=== PATIENT | male | born 1945 | race Hispanic/Latino ===

== ENCOUNTER → 2020-02-18 | Outpatient (CLI) | payer OTHER ==
[~2020-02-18] MED LIST: REGADENOSON 0.4 MG/5 ML PF SYG IVP SCH
== END | disposition home or self-care (01) ==
LOC: SHCH 09:00
PROVIDERS: ATTEND Internal Medicine
DX: Z01.810 Encounter for preprocedural cardiovascular examination (principal); I45.10 Unspecified right bundle-branch block
CPT/HCPCS: 78452; 93017; 96374; A9500 ×2; J2785

== ENCOUNTER 2020-03-02 07:35 | Day surgery (SDC) | payer OTHER ==
[2020-02-26 10:28] LABS: EOSINOPHILS % (AUTO) 6.6 % (0.0-8.0); HEMATOCRIT 38.9 % (42-54); MEAN CORPUSCULAR HEMOGLOBIN 26.8 pg (27.0-33.0); MEAN CORPUSCULAR HGB CONC 31.1 g/dL (32.0-36.0); MEAN CORPUSCULAR VOLUME 86.1 fL (79-99); MONOCYTES % (AUTO) 12.1 % (3.0-13.0); NEUTROPHILS % (AUTO) 46.1 % (40.0-77.0); PLATELET COUNT (AUTO) 233 K/uL (130-400); RED BLOOD CELL COUNT(AUTO) 4.52 MIL/uL (4.50-6.20); RED CELL DISTRIBUTION WIDTH 14.2 % (11.0-15.5)
[2020-02-27 08:49] VITALS: BP 181/88
[~2020-03-02] VITALS: Ht 177.8 cm; Wt 122.5 kg
[2020-03-02] VITALS (18 sets, daily range): BP systolic 144–168; BP diastolic 71–95
[~2020-03-02 07:35] MED LIST changes: +ATOR10 PO; +DULO30CA52 PO; +GABA600T10 PO; +GLIP10TA9 PO; +HYDR25TA PO; +LISI40TA4 PO; +OXYB5TAB15 PO; -REGADENOSON 0.4 MG/5 ML PF SYG IVP SCH
[2020-03-02] MEDS ORDERED: SODIUM CHLORIDE 0.9% 1000ML 1,000 ML IV ONE (08:32)
[2020-03-02] MEDS: CEFAZOLIN SODIUM 1 GM VIAL IVP SCH ×2 (09:00→12:00)
[2020-03-02] MEDS ORDERED: EPINEPHRINE 1 MG/ML 30ML VIAL IJ ONE (09:58)
[2020-03-02] MEDS ORDERED: CEFAZOLIN SODIUM 1 GM VIAL ONE (09:58)
[2020-03-02] MEDS ORDERED: LIDOCAINE PF 2% 5ML ABBOJECT ONE (11:32)
[2020-03-02] MEDS ORDERED: DEXAMETHASONE SOD PHOSPHATE 10MG/ML 1ML VIAL ONE (11:33)
[2020-03-02] MEDS ORDERED: MIDAZOLAM HCL 1 MG/ML 2ML VIAL ONE (11:33)
[2020-03-02] MEDS ORDERED: ONDANSETRON HCL 4 MG/2 ML VIAL ONE (11:33)
[2020-03-02] MEDS ORDERED: PROPOFOL 10 MG/ML 20ML VIAL IV ONE (11:33)
[2020-03-02] MEDS ORDERED: ROCURONIUM 10MG/1ML SYR 10 MG/ML ML ONE ×2 (11:34→12:35)
[2020-03-02] MEDS ORDERED: FENTANYL CITRATE PF 50 MCG/1 ML 2ML VIAL ONE (11:34)
[2020-03-02] MEDS ORDERED: EPHEDRINE SULFATE 50 MG/ML AMPULE ONE (12:16)
[2020-03-02] MEDS ORDERED: HYDR-4457 PO (14:40)
[2020-03-02] MEDS ORDERED: CEPH500B PO (14:40)
[2020-03-02] MEDS ORDERED: IBUP-2070 PO (14:40)
[2020-03-02] MEDS ORDERED: MEPERIDINE-PF 25 MG/ML SYG ONE ×2 (15:14→15:23)
== END 2020-03-02 17:15 | disposition home or self-care (01) ==
LOC: DAH 07:35
PROVIDERS: ATTEND Orthopaedic Surgery
DX: M75.121 Complete rotator cuff tear or rupture of right shoulder, not specified as traumatic (principal); M19.011 Primary osteoarthritis, right shoulder; Z20.828 Contact with and (suspected) exposure to other viral communicable diseases; M75.41 Impingement syndrome of right shoulder; M67.813 Other specified disorders of tendon, right shoulder; G89.29 Other chronic pain; M25.511 Pain in right shoulder; K21.9 Gastro-esophageal reflux disease without esophagitis; I10 Essential (primary) hypertension; E11.9 Type 2 diabetes mellitus without complications; E66.9 Obesity, unspecified; F43.10 Post-traumatic stress disorder, unspecified; Z83.3 Family history of diabetes mellitus; Z82.49 Family history of ischemic heart disease and other diseases of the circulatory system; Z98.890 Other specified postprocedural states; Z79.899 Other long term (current) drug therapy
CPT/HCPCS: 29824; 29826; 29827; 36415; 64415; 76942; 82948 ×2; 85025; A4215; A4221; A4222; A4223 ×2; A4565; A4649 ×4; A4663; A4930; A6204; C1713 ×2; C9803; J0171; J0690 ×2; J1100; J2001; J2175 ×2; J2250; J2405; J2704; J3010; J3490; J7030 ×2; U0003

== ENCOUNTER 2021-11-30 17:32 | Emergency (ER) | payer OTHER ==
[~2021-11-30 17:32] MED LIST changes: +CEPH500B PO; +HYDR-4457 PO; +IBUP-2070 PO; -LISI40TA4 PO; +LISI40TA9 PO
[2021-11-30 17:39] VITALS: BP 122/74
== END 2021-11-30 18:28 | disposition left against medical advice (07) ==
LOC: EDH 17:32
DX: R53.1 Weakness (principal); R53.83 Other fatigue; Z53.21 Procedure and treatment not carried out due to patient leaving prior to being seen by health care provider

== ENCOUNTER 2024-10-27 13:20 | Emergency (ER) | payer OTHER ==
[~2024-10-27] VITALS: Ht 177.8 cm; Wt 113.4 kg
[~2024-10-27 13:20] MED LIST changes: +GABA-1405 PO; -GABA600T10 PO; +GLIP10TA16 PO; -GLIP10TA9 PO; +IBUP-1492 PO; -IBUP-2070 PO; +LISI40TA15 PO; -LISI40TA9 PO; -OXYB5TAB15 PO; +OXYB5TAB20 PO
[2024-10-27 13:35] VITALS: TEMP 97.8
--- NOTE | 2024-10-27 14:21 | NUR ---
1420 REPORTED FROM ERLIN DONATION WORKER NURSE PT IS CURRENTLY IN ED LOBBY AND IS STATING (THREATING) TO BRIM PLATER HE NEEDS A PLACE TO STAY, IF WE REGISTRATION HERE DOES NOT GIVE HIM A ROOM, HE WILL START WALKING AROUND ER DEPTARTMENT. INSTRUCTED AMANDA NURSE TO CALL [facility] IF PT TRYS TO FORCE HIS WAY BACK TO ED STATION.
--- NOTE | 2024-10-27 14:55 | NUR ---
CALLED TROPICAL SCREENER CLAIR REPORT GIVEN PT WITH REYMUNDO NAVA, SPOUSE WENT HOME. PER [facility] REQUESTING BLOOD ALCOHOL LEVEL PRIOR TO SCREENER TO BE SENT. INSTRUCTED TO CALL BACK SCREENER WITH LEVEL.
--- NOTE | 2024-10-27 15:06 | EKG ---
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
[2024-10-27 15:13] LABS: IMMATURE GRANULOCYTE ABSOLUTE 0.03 K/uL (0-1); NUCLEATED RED BLOOD CELLS 0.0 % (0.0-0.19); PLATELET COUNT (AUTO) 195 K/uL (130-400); RED BLOOD CELL COUNT(AUTO) 4.35 MIL/uL (4.50-6.20); RED CELL DISTRIBUTION WIDTH 13.3 % (11.0-15.5); WHITE BLOOD COUNT (AUTO) 6.8 K/uL (4.8-10.8)
[2024-10-27 15:14] VITALS: BP 138/111; PULSE 91; RESP 17; O2SAT 98
[2024-10-27 15:20] LABS: CREATININE 1.2 mg/dL (0.5-1.3); GLOMERULAR FILTR. RATE CALC 62.0 mL/min (>90); GLUCOSE,RANDOM 287.0 mg/dL (70-105); SODIUM SERUM 137.0 mmol/L (136-145); UREA NITROGEN, BLOOD 17.0 mg/dL (7-18)
--- NOTE | 2024-10-27 15:37 | NUR ---
called tropical davie Gutierrez ( no identification number per renetta) notified of alcohol level, pending evaluation
--- NOTE | 2024-10-27 16:02 | NUR ---
1600 CALLED TROPICAL BACK TO REPORT BLOOD ALCOHOL LEVEL. STATES WORKER WILL BE COMING BY TO SCREEN PT.
--- NOTE | 2024-10-27 17:45 | NUR ---
Tropical screener here in ER, advise her that patient is stating he will leave after the bathroom . Informed Ignirm , she remained in conference room talking to patient . Advised pt if he leaves it will be against medical advised and pt refused to sign form.
--- NOTE | 2024-10-27 17:58 | NUR ---
Advised the patient of the importance of staying here to be evaulated , pt refused and began to scream at staff, pt left ama and refused to sign. Pt stable.
--- NOTE | 2024-10-27 17:59 | NUR ---
PT RESTLESS, AGGITATED, VERBAL YELLING AT STAFF, STATES HE WANTS TO LEAVE HOME STATES HE WILL WALK OUT. ANDREW MAK GAVE PT HIS PERSONAL BELONGINGS WALKED PT TO [place] [place]. DR. SPENCER MANLEY, SCREENER FOR TROPICAL AWARE.
--- NOTE | 2024-10-27 18:01 | ERN ---
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 Does not have any medical complaints. Allergies: Coded Allergies: cortisone (Unverified Allergy, Unknown, 03/02/20) levofloxacin (Unverified Allergy, Unknown, 03/02/20) Home Meds Active Scripts Ibuprofen (Ibuprofen) 600 Mg Tablet, 600 MG PO Q8H PRN for PAIN, #60 TAB 1 Refill Prov:JOHN ROSS MD 03/02/20 Hydrocodone/Acetaminophen ([place] 5-325 Tablet) 1 Each Tablet, 1-2 EACH PO Q6HPRN PRN for PAIN, #56 TAB Prov:JOHN ROSS MD 03/02/20 Cephalexin Monohydrate (Keflex) 500 Mg Cap, 500 MG PO Q8H, #7 CAP Prov:JOHN ROSS MD 03/02/20 Reported Medications Duloxetine HCl (Duloxetine HCl) 30 Mg Capsule.dr, 30 MG PO BID, CAP 02/27/20 Gabapentin (Gabapentin) 600 Mg Tablet, 600 MG PO DAILY, TAB 02/27/20 Atorvastatin Calcium (LIPITOR) 20 Mg Tab, 20 MG PO DAILY, TAB 02/27/20 Oxybutynin Chloride (Oxybutynin Chloride) 5 Mg Tablet, 5 MG PO DAILY, TAB 02/27/20 Hydrochlorothiazide (Hydrochlorothiazide) 25 Mg Tablet, 25 MG PO DAILY, TAB 02/27/20 Lisinopril (Lisinopril) 40 Mg Tablet, 40 MG PO DAILY, TAB 02/27/20 Glipizide (Glipizide) 10 Mg Tablet, 10 MG PO BID, TAB 1/2 TABLET TWICE DAILY 02/27/20 Past Medical History Past Medical History: Other Additional Past Medical Hx: parkinsons Surgical History: Other Surgical History Other: bl knee sx, rt ear Review of System Dictation Constitutional: Negative for fever,chills, and weight loss Eyes: Negative for injury, pain,redness, and discharge ENT: Negative for injury,pain or swelling Cardiovascular: Negative for chest pain, palpitations, and edema Respiratory: Negative for shortness of breath, cough, and wheezing, Abdomen/GI: Negative for abdominal pain, nausea, vomiting, diarrhea, and constipation Back: Negative for injury and pain : Negative for injury, bleeding and discharge MS/Extremity: Negative for injury and deformity Skin: Negative for rash, and discoloration Neuro: Negative for headache, weakness, numbness, tingling, and seizure Psych: Negative for suicide ideation, homicidal ideation, and hallucinations Review of Systems: was completed Initial Vital Sign VS Vital Signs Date Time Temp Pulse Resp B/P (MAP) Pulse Ox O2 Delivery O2 Flow Rate FiO2 10/27/24 13:27 97.9 100 18 129/53 90 0 10/27/24 13:35 Room Air* 21 Physical Exam Dictation General: awake, alert, NAD Head/Face: Normocephalic, atraumatic Eyes: PERRL, EOMI, vision at baseline ENT: oral cavity clear, TMs clear, no signs of infection Neck: Trachea midline, supple, no nuchal rigidity Cardiovascular: RRR, normal S1/S2, No MRGs, no JVD Respiratory: CTAB, no respiratory distress, No rales or wheezes Abdomen: Soft, non-tender, non-distended, normal bowel sounds, no guarding or rebound. Skin: Warm, dry, normal turgor, no rash MS/Extremity: Pulses equal, no cyanosis, neurovascular intact, FROM Neuro: COAx4, GCS 15, strength 5/5, CN 2-12 intact, normal cerebellar exam, normal gait, Psych: Normal behavior, mood, and affect normal Results (Laboratory/Radiology) Laboratory/Radiology Laboratory Tests Test 10/27/24 15:06 White Blood Count 6.8 K/uL (4.8-10.8) Red Blood Count 4.35 MIL/uL (4.50-6.20) L Hemoglobin 13.5 g/dL (14.0-18.0) L Hematocrit 41.1 % (42-54) L Mean Corpuscular Volume 94.5 fL (79-99) Mean Corpuscular Hemoglobin 31.0 pg (27.0-33.0) Mean Corpuscular Hemoglobin Concent 32.8 g/dL (32.0-36.0) Red Cell Distribution Width 13.3 % (11.0-15.5) Platelet Count 195 K/uL (130-400) Mean Platelet Volume 10.6 fL (7.5-10.5) H Immature Granulocyte % (Auto) 0.4 % (0-1) Neutrophils (%) (Auto) 50.6 % (40.0-77.0) Lymphocytes (%) (Auto) 33.8 % (21.0-51.0) Monocytes (%) (Auto) 10.5 % (3.0-13.0) Eosinophils (%) (Auto) 4.1 % (0.0-8.0) Basophils (%) (Auto) 0.6 % (0.0-5.0) Neutrophils # (Auto) 3.5 K/uL (1.8-7.7) Lymphocytes # (Auto) 2.3 K/uL (1.0-4.8) Monocytes # (Auto) 0.7 K/uL (0.1-1.0) Eosinophils # (Auto) 0.28 K/uL (0.00-0.70) Basophils # (Auto) 0.04 K/uL (0.00-0.20) Absolute Immature Granulocyte (auto 0.03 K/uL (0-1) Nucleated Red Blood Cells 0.0 % (0.0-0.19) Sodium Level 137 mmol/L (136-145) Potassium Level 4.0 mmol/L (3.5-5.1) Chloride Level 102 mmol/L (101-111) Carbon Dioxide Level 31 mmol/L (21-32) Blood Urea Nitrogen 17 mg/dL (7-18) Creatinine 1.2 mg/dL (0.5-1.3) Glomerular Filtration Rate Calc 62 mL/min (>90) Random Glucose 287 mg/dL (70-105) H Total Calcium 8.8 mg/dL (8.5-10.1) Serum Alcohol < 3 mg/dL (0-10) Labs Reviewed?: Yes EKG Comment: EKGs done at 2:52 p.m.. EKGs shows sinus rhythm rate 99, atrial premature complexes, right bundle branch block. No STEMI interpreted by ER MD ED Course ED Course Orders Procedure Category Date Status Time Cbc With Differential LAB 10/27/24 Complete 14:49 Basic Metabolic Panel LAB 10/27/24 Complete 14:49 12 Lead Ekg Tracing- EKG 10/27/24 Complete Technical 14:49 Alcohol, Blood LAB 10/27/24 Complete 14:54 Regular DIET 10/28/24 Transmitted Breakfast Vital Signs Date Time Temp Pulse Resp B/P (MAP) Pulse Ox O2 Delivery O2 Flow Rate FiO2 10/27/24 15:14 91 17 138/111 98 Room Air* 0 21 10/27/24 13:35 97.9 100 18 129/53 95 Room Air* 0 21 10/27/24 13:27 97.9 100 18 129/53 90 0 HEART Score Response (Comments) Value History: Low suspicion (0) 0 EKG: Normal 0 Age: > 65yrs (+2) 2 Risk Factors: No known risk factors (0) 0 Initial Troponin: Normal limit (0) 0 Total 2 Medical Decision Making MDM 79-year-old male with a history of depression anxiety coming in with complaints of not 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 Does not have any medical complaints. CBC shows no leukocytosis, no anemia, no thrombocytopenia. Chemistry unremarkable. No alcohol noted. Patient will be screened for further evaluation for anxiety and depression. At 5:56 p.m.. Patient wants to leave, states we did not help him. We told patient that this screened and was already here in the hospital she was sitting up to have him evaluated however patient is still decided to leave. Patient does not want to sign the AMA form. DX & DISP Disposition: AMA Departure Impression: Primary Impression: Encounter for wellness examination Additional Impression: Left against medical advice Condition: Stable Referrals: STACI COLON MD (PCP) Time of Disposition: 18:00 I have reviewed the case, and I agree with, Diagnosis and Plan SHANTELL PERRIN NP Oct 27, 2024 18:01
== END 2024-10-27 18:03 | disposition left against medical advice (07) ==
LOC: EDH 13:20
DX: Z04.89 Encounter for examination and observation for other specified reasons (principal); G20.A1 Parkinson's disease without dyskinesia, without mention of fluctuations; I45.10 Unspecified right bundle-branch block; Z53.29 Procedure and treatment not carried out because of patient's decision for other reasons; Z79.84 Long term (current) use of oral hypoglycemic drugs; Z79.899 Other long term (current) drug therapy; Z85.72 Personal history of non-Hodgkin lymphomas; Z88.1 Allergy status to other antibiotic agents
CPT/HCPCS: 36415; 80048; 85025; 93005; 99284